=== PATIENT | female | born 1980 | race Two or more races ===

== ENCOUNTER 2017-10-05 04:44 | Emergency (ER) | payer OTHER ==
[2017-10-05 05:32] VITALS: BMI 38.9
[2017-10-05] MEDS ORDERED: Magnesium Sulfate 4 gm/100 ml 4 GM/100 ML BAG IV ONE (06:05)
[2017-10-05] MEDS ORDERED: Magnesium Sulfate 2 GM in Sodium Chloride 0.9% 100 ML IVPB ONE (06:05)
[2017-10-05] MEDS ORDERED: Betamethasone Soluspan 30 mg/5mL Inj Susp IM ONE (06:06)
[2017-10-05] MEDS ORDERED: Magnesium Sul 40GM/1L SW 40 GM/1,000 ML ML IV ONE (06:24)
[2017-10-05 06:52] LABS: ALBUMIN 3.6 g/dL (3.5-5.0); ALT/SGPT 57 U/L (9-52); AST/SGOT 53 U/L (14-36); BLOOD UREA NITROGEN 6 mg/dl (7-17); CALCIUM 9.3 mg/dL (8.4-10.2); GFR AFRICAN-AMERICAN > 60; GFR NON-AFRICAN AMERICAN > 60
--- NOTE | 2017-10-05 06:53 | OBHP ---
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 Patient recently was diagnosed with Gestational d iajesus, was in process of taking FS to assess if she needed to be started on medical management. Oth erwise pt is AMA, no other antepartum issues, no medical problems, no surgeries, no allergies, not ta tish any medications VE=gross pooling noted, closed cervix noted [id number] mod jimbo, +accels, no decles A/P 1. Patient confirmed to be ruptured on exam. IVF started, will draw CBC/CMP 2. Will start MgSO4 for neuroprotection and tocolysis 3. betamethasone and latency antibiotics 4. Will speak to MFM about transfer to tertiary hospital Pelvic Type - PN: Adequate Extremities - PN: Normal Abdomen - PN: Normal Back - PN: Normal Breast - PN: Normal Lungs - PN: Normal Heart - PN: Normal Thyroid - PN: Normal Neurologic - PN: Normal HEENT - PN: Normal General - PN: Normal Membranes, Provider: Ruptured Contraction Comments Provider: none Pool Provider: Positive EGA AdmitDate IP: 30.1 Vital Signs Provider: Reviewed; Within Normal Limits IP Chief Complaint: Suspected ruptured membranes NICHD Decel Fetus A IP Provider: None Dilatation, Provider: closed Genitourinary Exam: Normal DTRs - PN: Normal
[2017-10-05 06:57] LABS: BASO % 0.3 % (0.0-2.0); EOS # 0.1 K/uL (0.0-0.7); EOS % 0.9 % (0.0-4.0); HEMOGLOBIN 10.4 g/dL (12.0-16.0); LYMPH # 1.5 K/uL (1.0-4.3); MEAN CELL VOLUME 78.7 fl (81.0-99.0); MEAN CORPUSCULAR HEMOGLOBIN 25.7 pg (27.0-31.0); MEAN CORPUSCULAR HGB CONC 32.7 g/dL (33.0-37.0); MEAN PLATELET VOLUME 8.6 fl (7.2-11.7); MONO # 0.6 K/uL (0.0-0.8); MONO % 6.6 % (0.0-10.0); NEUT # 6.3 K/uL (1.8-7.0); NEUT % 74.2 % (50.0-75.0); RBC 4.05 Mil/uL (3.80-5.20); WHITE BLOOD COUNT 8.5 K/uL (4.8-10.8)
[2017-10-05] MEDS ORDERED: Lactated Ringer's 1,000 ML IV SCH (07:15)
[2017-10-05] MEDS ORDERED: Azithromycin 1,000 MG in Sodium Chloride 0.9% 500 ML IVPB ONE (09:00)
[2017-10-05] MEDS ORDERED: AMPicillin 2 GM in Sodium Chloride 0.9% 100 ML IVPB SCH (10:00)
[2017-10-05 21:20] VITALS: BP 124/57; PULSE 105; RESP 20; TEMP 98.2; O2SAT 98
== END 2017-10-05 09:47 | disposition short-term general hospital (02) ==
LOC: H.EROB2 04:44
DX: O34.63 Maternal care for abnormality of vagina, third trimester (principal); N89.8 Other specified noninflammatory disorders of vagina; Z3A.30 30 weeks gestation of pregnancy; O09.523 Supervision of elderly multigravida, third trimester; O24.419 Gestational diabetes mellitus in pregnancy, unspecified control
CPT/HCPCS: 80053; 85025; 96372; 99283; J0290; J0456; J0702; J3475; J7040; J7120